=== PATIENT | male | born 1985 | race Caucasian/White ===

== ENCOUNTER 2021-06-29 10:22 | Outpatient (REF) | payer SELFPAY ==
[2021-07-05 00:22] LABS: Zinc Protoporphrin <50 mcg/dL (<100)
== END 2021-06-29 10:23 | disposition home or self-care (01) ==
LOC: HO.LAB 10:22
PROVIDERS: Visit Provider Physician Assistant Medical
DX: Z57.9 Occupational exposure to unspecified risk factor (principal)
CPT/HCPCS: 36415; 84202